=== PATIENT | male | born 1935 | race Caucasian/White ===

== ENCOUNTER → 2016-11-30 | Outpatient (CLI) | payer MEDICARE, OTHER ==
[2016-11-30 13:04] LABS: INR 1.65 (0.76-1.04)
[2016-11-30 13:09] LABS: ANION GAP 6 MEQ/L (5-15); BUN/CREATININE RATIO 23 RATIO (6-26); CALCIUM 9.1 MG/DL (8.4-10.2); CHLORIDE 103 MEQ/L (98-107); CO2 - CARBON DIOXIDE 28 MEQ/L (22-30); CREATININE 1.5 MG/DL (0.8-1.5); GLOMERULAR FILTRATION RATE 45; GLUCOSE 89 MG/DL (75-110); POTASSIUM 4.6 MEQ/L (3.6-5); SODIUM 137 MEQ/L (134-144)
== END ==
LOC: LABN 12:44
PROVIDERS: ATTEND Internal Medicine Cardiovascular Disease
DX: I25.10 Atherosclerotic heart disease of native coronary artery without angina pectoris (principal); I48.91 Unspecified atrial fibrillation
CPT/HCPCS: 80048; 85610

== ENCOUNTER 2017-01-09 15:19 | Emergency (ER) | payer MEDICARE, OTHER ==
[~2017-01-09] VITALS: Ht 172.7 cm; Wt 75.9 kg
[~2017-01-09 15:19] MED LIST: ASCO10007 PO; ASPI-557 PO; DOCU250C77 PO; FOLI1TAB15 PO; FURO40TA5 PO; GABA-338 PO; METO-275 PO; OXYC1TAB8 PO; PANT40TA27 PO; POT1TABL2 PO; SIMV20TA6 PO; VITA-321 PO; WARF2.5T73 PO; WARF5TAB6 PO
[2017-01-09 15:21] VITALS: TEMP 97.5; Ht 172.7 cm; Wt 75.9 kg
--- OUTSIDE RECORDS SUMMARY | 2017-01-09 15:23 | XMS REPORT | CCD ---
Author Author ADDIE MITCHELL Organization Unknown Address [address] [place], [place] [id number] Phone 0 Care Team Providers Care Curing Oven Attendant Name Role Phone LAVERNE JACKMAN Attending Physician [phone] GIBSON FOUNTAIN Physician [phone] Vital Signs Unknown or Not Available. Allergies Unknown or Not Available. Procedures Procedure Code Procedure Type Date Njx Dx/Ther Sbst Epidural/Subarach Lumbar/Sacral 48845 CPT 06/11/2015 Njx Dx/Ther Sbst Epidural/Subarach Lumbar/Sacral 98539 CPT 06/11/2015 History of Immunizations Unknown or Not Available. Problems Unknown or Not Available. Results Unknown or Not Available. Active Medications Unknown or Not Available. Medications Administered During Visit Unknown or Not Available. Encounters Encounter Diagnosis Diagnosis Code Start Date LUMBOSACRAL PLEX LESION 3531 06/11/2015 Social History Smoking Status Code Start Date End Date Unknown if ever smoked [id number] Patient Decision Aids Unknown or Not Available. Discharge Instructions You were admitted to [facility] on 06/11/2015 with a principal diagnosis of LUMBOSACRAL PLEX LESION. You had the following procedures done: INJECT SPINE LUMBAR/SACRAL INJECT SPINE LUMBAR/SACRAL You were discharged from [facility] on 06/11/2015. Should you have any questions prior to discharge, please contact a member of your healthcare team. If you have left the hospital and have any questions, please contact your primary care physician. Chief Complaint and Reason For Visit Chief Complaint Date of Onset EPIDURAL Function Status Unknown or Not Available. Plan of Care Unknown or Not Available. Referral/Transition of Care Unknown or Not Available.
--- OUTSIDE RECORDS SUMMARY | 2017-01-09 15:23 | XMS REPORT | CCD ---
Author Author ADDIE MITCHELL Organization Unknown Address [address] [place], [place] [id number] Phone 0 Care Team Providers Care Air Saw Operator Name Role Phone LAVERNE JACKMAN Attending Physician [phone] GIBSON FOUNTAIN Physician [phone] Vital Signs Unknown or Not Available. Allergies Unknown or Not Available. Procedures Procedure Code Procedure Type Date Njx Dx/Ther Sbst Intrlmnr Lmbr/Sac [place] 58719 CPT 09/22/2016 Njx Dx/Ther Sbst Intrlmnr Lmbr/Sac W/[place] 47211 CPT 09/22/2016 History of Immunizations Unknown or Not Available. Problems Unknown or Not Available. Results Unknown or Not Available. Active Medications Unknown or Not Available. Medications Administered During Visit Unknown or Not Available. Encounters Encounter Diagnosis Diagnosis Code Start Date Radiculopathy, lumbosacral region M5417 09/22/2016 Social History Smoking Status Code Start Date End Date Unknown if ever smoked [id number] Patient Decision Aids Unknown or Not Available. Discharge Instructions You were admitted to [facility] on 09/22/2016 08:04 with a principal diagnosis of Radiculopathy, lumbosacral region You had the following procedures done: Njx Dx/Ther Sbst Intrlmnr Lmbr/Sac W/O Img Gdn Njx Dx/Ther Sbst Intrlmnr Lmbr/Sac W/O Img Gdn You were discharged from [facility] on 09/22/2016 08:04 Should you have any questions prior to [...]
--- OUTSIDE RECORDS SUMMARY | 2017-01-09 15:23 | XMS REPORT | CCD ---
Author Author MANNY GARCIA Organization Unknown Address [address] [place], [place] [id number] Phone 0 Care Team Providers Care Arborist Representative Name Role Phone LAVERNE JACKMAN Attending Physician [phone] Vital Signs Unknown or Not Available. Allergies Unknown or Not Available. Procedures Unknown or Not Available. History of Immunizations Unknown or Not Available. Problems Unknown or Not Available. Results Unknown or Not Available. Medications Unknown or Not Available. Medications Administered Unknown or Not Available. Encounters Unknown or Not Available. Social History Smoking Status Code Start Date End Date Unknown if ever smoked [id number] Patient Decision Aids Unknown or Not Available. Discharge Instructions You were admitted to [facility] on 02/22/2014. You were discharged from [facility] on 02/22/2014. Should you have any questions prior to [...]
--- OUTSIDE RECORDS SUMMARY | 2017-01-09 15:23 | XMS REPORT ---
Author Author [place]/[facility], Via [facility] Unknown Address Unknown Phone Unavailable Allergies, Adverse Reactions, Alerts * No Latex Allergy. * No IV Contrast Allergy. * No Known Drug Allergies. * No Known Food Allergies. * No Known Allergies. Problems * Angina* Status:Active. Procedures No Procedures Documented. Medication It is the responsibility of the patient or patient renewals representative to confirm the list of medications with either the patient's personal care provider or the patient's follow-up care provider to ensure the patient has an appropriate list of medications to take at home. Discharge medications* isosorbide mononitrate 30 mg Tablet Extended Release 24 hr, Ordered By: Camilla Hernandez Directions: 1 tablet oral daily * simvastatin 20 mg Tablet, Ordered By: Camilla Hernandez Directions: 1 tablet oral daily every evening * meloxicam (Mobic) 7.5 mg Tablet, Ordered By: Camilla Hernandez Directions: 1 tablet oral daily * amLODIPine 10 mg Tablet, Ordered By: Camilla Hernandez Directions: 1 tablet oral daily * naproxen sodium (Aleve) 220 mg Tablet, Ordered By: Camilla Hernandez Directions: 1 tablet oral twice a day * enalapril maleate 20 mg Tablet, Ordered By: Camilla Hernandez Directions: 1 tablet oral twice a day * garlic 2,000 mg Capsule, Ordered By: Camilla Hernandez Directions: 1 capsule oral daily * foLIC Acid 0.8 mg Tablet, Ordered By: Camilla Hernandez Directions: 1 tablet oral daily * magnesium oxide (MagOx) 400 mg Tablet, Ordered By: Camilla Hernandez Directions: 1 tablet oral daily * potassium gluconate 595 mg (99 mg) Tablet, Ordered By: Camilla Hernandez Directions: 1 tablet oral daily * niacin 250 mg Tablet, Ordered By: Camilla Alexanderussen Directions: 1 tablet oral daily * ascorbic acid (Vitamin C) 500 mg Tablet Extended Release, Ordered By: Camilla Hernandez Directions: 1 tablet oral daily * flaxseed oil 1,000 mg Capsule, Ordered By: Camilla Hernandez Directions: 1 capsule oral daily * Fish Oil 1000mg 1 capsule by mouth daily. Last dose taken at home: 02/27/13 * omeprazole 20 mg Capsule, Delayed Release(E.C.), Ordered By: Camilla Hernandez Directions: 1 capsule oral daily * aspirin (Aspir-Low) 81 mg Tablet, Delayed Release (E.C.), Ordered By: Camilla Hernandez Directions: 1 tablet oral Daily at 8 AM _ Stopped medications* None Results LAB--CHEMISTRY from 02/27/2013 7:21 PMB-Type Natriuretic Pep. 40 pg/mL (0-99 pg/ mL) Magnesium 2.1 mg/dL (1.8-2.5 mg/dL) Troponin <0.06 ng/mL (-<0.06 ng/mL) Estimated Average Glucose 157.1 mg/dL Hemoglobin A1C 7.1 % H (4.1-5.6 %) TSH (with reflex Free T4) 1.55 uIU/mL (0.35-5.50 uIU/mL) LAB--CHEMISTRY from 02/28/2013 2:50 AMTroponin <0.06 ng/mL (-<0.06 ng/mL) LAB--CHEMISTRY from 02/28/2013 2:56 AMAnion Gap 8 (3-20 ) Albumin 3.4 g/dL L (3.5-4.8 g/dL) Alkaline Phosphatase 48 U/L (26-104 U/L) ALT (SGPT) 23 U/L (17-63 U/L) AST (SGOT) 23 U/L (15-41 U/L) Bilirubin Total 1.0 mg/dL (0.2-1.2 mg/dL) BUN 22 mg/dL H (4-20 mg/dL) Calcium 9.1 mg/dL (8.6-10.0 mg/dL) Chloride 109 mEq/L (99-109 mEq/L) CO2 25 mEq/L (22-32 mEq/L) Creatinine 1.20 mg/dL (0.64-1.27 mg/dL) eGFR 59 A (>60- ) Globulin 2.8 g/dL (1.9-4.3 g/dL) Glucose 107 mg/dL H (70-100 mg/dL) Potassium 3.8 mEq/L (3.6-5.1 mEq/L) Sodium 142 mEq/L (136-144 mEq/L) Protein 6.2 g/dL (6.1-7.9 g/dL) Cholesterol 139 mg/dL (0-200 mg/dL) Cardiac Risk 3.6 (0.0-5.7 ) HDL Cholesterol 39 mg/dL A (>40- mg/dL) LDL Cholesterol 74 mg/dL (0-100 mg/dL) Triglycerides 131 mg/dL (0-150 mg/dL) VLDL Cholesterol 26 mg/dL (0-30 mg/dL) LAB--CHEMISTRY from 02/28/2013 11:06 AMTroponin <0.06 ng/mL (-<0.06 ng/mL) LAB--CHEMISTRY from 03/01/2013 4:23 AMAnion Gap 8 (3-20 ) BUN 23 mg/dL H (4-20 mg/dL) Calcium 9.1 mg/dL (8.6-10.0 mg/dL) Chloride 109 mEq/L (99-109 mEq/L) CO2 23 mEq/L (22-32 mEq/L) Creatinine 1.20 mg/dL (0.64-1.27 mg/dL) eGFR 59 A (>60- ) Glucose 98 mg/dL (70-100 mg/dL) Potassium 4.1 mEq/L (3.6-5.1 mEq/L) Sodium 140 mEq/L (136-144 mEq/L) LAB--COAG STUDIES from 02/27/2013 7:21 PMINR 1.1 (0.9-1.2 ) PTT 90.2 sec H (25.0-35.0 sec) LAB--COAG STUDIES from 02/28/2013 2:50 AMPTT 68.1 sec H (25.0-35.0 sec) LAB--COAG STUDIES from 03/01/2013 4:22 AMPTT 35.0 sec (25.0-35.0 sec) LAB--HEMATOLOGY from 02/28/2013 2:50 AMAbsolute Basophils 0.04 THOUS (0.00-0.20 THOUS) Absolute Eosinophils 0.24 THOUS (0.00-0.50 THOUS) Absolute Lymphocytes 3.02 THOUS (0.80-3.30 THOUS) Absolute Monocytes 0.76 THOUS (0.30-1.00 THOUS) Absolute Neutrophils 2.63 THOUS (1.90-7.00 THOUS) HCT 44.0 % (42.0-52.0 %) HGB 14.7 g/dl (14.0-18.0 g/dl) MCH 30.4 pg (27.0-32.0 pg) MCHC 33.4 g/dL (32.0-36.0 g/dL) MCV 91.1 fL (82.0-99.0 fL) MPV 10.9 fL (9.4-12.3 fL) Platelet Count 159 K/uL (150-400 K/uL) RBC 4.83 M/uL (4.60-6.20 M/uL) RDW 12.5 % (11.5-14.5 %) WBC 6.7 K/uL (4.8-10.8 K/uL) Basophils 1 % (0-2 %) Eosinophils 4 % (0-4 %) Immature Granulocytes 0.1 % (0.0-1.0 %) Lymphocytes 45 % (20-46 %) Monocytes 11 % (4-11 %) Nucleated RBC Automated 0.0 /100 WBC (0 /100 WBC) Neutrophils 39 % L (51-75 %) LAB--HEMATOLOGY from 03/01/2013 4:22 AMHCT 47.0 % (42.0-52.0 %) HGB 15.3 g/dl (14.0-18.0 g/dl) MCH 30.6 pg (27.0-32.0 pg) MCHC 32.6 g/dL (32.0-36.0 g/dL) MCV 94.0 fL (82.0-99.0 fL) MPV 11.2 fL (9.4-12.3 fL) Platelet Count 165 K/uL (150-400 K/uL) RBC 5.00 M/uL (4.60-6.20 M/uL) RDW 12.8 % (11.5-14.5 %) WBC 6.1 K/uL (4.8-10.8 K/uL) LAB--URINE TESTS from 02/27/2013 9:04 PMAppearance Clear Bilirubin Negative (Negative ) Blood Negative (Negative ) Color Lt Yellow Glucose Negative (Negative ) Ketones, Urine Negative (Negative ) Leukocytes Esterase Negative (Negative ) Nitrites Negative (Negative ) pH, Urine 7.0 (5.0-8.0 ) Protein Negative (Negative ) Specific [place] 1.011 (1.003-1.030 ) Collection Type: Clean Catch Urobilinogen Negative mg/dL (-<1.0 mg/dL)
--- OUTSIDE RECORDS SUMMARY | 2017-01-09 15:23 | XMS REPORT | CCD ---
Author Author MANNY GARCIA Organization Unknown Address [address] [place], [place] [id number] Phone 0 Care Team Providers Care Collar Separator Name Role Phone GIBSON FOUNTAIN Attending Physician [phone] LAVERNE JACKMAN Physician [phone] Vital Signs Unknown. Allergies Unknown. Procedures Unknown. History of Immunizations Unknown. Problems Unknown. Results Unknown. Medications Unknown. Medications Administered Unknown. Encounters Unknown. Social History Smoking Status Code Start Date End Date Unknown if ever smoked [id number] Patient Decision Aids Unknown. Discharge Instructions You were admitted to [facility] on 02/09/2014. You were discharged from [facility] on 02/09/2014. Should you have any questions prior to discharge, please contact a member of your healthcare team. If you have left the hospital and have any questions, please contact your primary care physician. Chief Complaint and Reason For Visit Chief Complaint Date of Onset EPIDURAL Function Status Unknown. Plan of Care Unknown. Referral/Transition of Care Unknown.
--- OUTSIDE RECORDS SUMMARY | 2017-01-09 15:23 | XMS REPORT | CCD ---
Author MANNY Erazo Organization Unknown Address [address] [place], [place] [id number] Phone 0 Care Team Providers Care Au Pair Name Role Phone LAVERNE JACKMAN Attending Physician [phone] GIBSON FOUNTAIN Physician [phone] Vital Signs Unknown or Not Available. Allergies Unknown or Not Available. Procedures Unknown or Not Available. History of Immunizations Unknown or Not Available. Problems Unknown or Not Available. Results Unknown or Not Available. Active Medications Unknown or Not Available. Medications Administered During Visit Unknown or Not Available. Encounters Encounter Diagnosis Diagnosis Code Start Date MONONEURITIS NOS 3559 08/17/2014 Social History Smoking Status Code Start Date End Date Unknown if ever smoked [id number] Patient Decision Aids Unknown or Not Available. Discharge Instructions You were admitted to [facility] on 08/17/2014 with a principal diagnosis of MONONEURITIS NOS. You had the following procedures done: INJECT SPINE LUMBAR/SACRAL INJECT SPINE LUMBAR/SACRAL You were discharged from [facility] on 08/17/2014. Should you have any questions prior to [...]
--- OUTSIDE RECORDS SUMMARY | 2017-01-09 15:23 | XMS REPORT | CCD ---
Author MANNY Erazo Organization Unknown Address [address] [place], [place] [address] Phone 0 Care Team Providers Care Clinic Lead Name Role Phone LAVERNE JACKMAN Attending Physician [phone] GIBSON FOUNTAIN Physician [phone] Vital Signs Unknown or Not Available. Allergies Unknown or Not Available. Procedures Procedure Code Procedure Type Date INJECT SPINE LUMBAR/SACRAL 19165 CPT 02/05/2015 INJECT SPINE LUMBAR/SACRAL 75882 CPT 02/05/2015 History of Immunizations Unknown or Not Available. Problems Unknown or Not Available. Results Unknown or Not Available. Active Medications Unknown or Not Available. Medications Administered During Visit Unknown or Not Available. Encounters Encounter Diagnosis Diagnosis Code Start Date MONONEURITIS NOS 3559 02/05/2015 Social History Smoking Status Code Start Date End Date Unknown if ever smoked [id number] Patient Decision Aids Unknown or Not Available. Discharge Instructions You were admitted to [facility] on 02/05/2015 with a principal diagnosis of MONONEURITIS NOS. You had the following procedures done: INJECT SPINE LUMBAR/SACRAL INJECT SPINE LUMBAR/SACRAL You were discharged from [facility] on 02/05/2015. Should you have any questions prior to [...]
--- OUTSIDE RECORDS SUMMARY | 2017-01-09 15:26 | XMS REPORT ---
Author Author [place], Via [facility] Unknown Address Unknown Phone Unavailable Allergies, Adverse Reactions, Alerts * No Latex Allergy. * No IV Contrast Allergy. * No Known Drug Allergies. * No Known Food Allergies. * No Known Allergies. Problems * Angina* Status:Active. Procedures No Procedures Documented. Medication It is the responsibility of the patient or patient life assurance representative to confirm the list of medications [...] (5.0-8.0 ) Protein Negative (Negative ) Specific [place] 1.011 (1.003-1.030 ) Collection Type: Clean Catch Urobilinogen Negative mg/dL (-<1.0 mg/dL)
[2017-01-09] MEDS ORDERED: METO25TA6 PO (15:46)
[2017-01-09] MEDS ORDERED: POTA20TA87 PO (15:47)
[2017-01-09] MEDS ORDERED: ACET-2890 PO (15:49)
--- NOTE | 2017-01-09 15:50 | ERPDOC ---
Departure Disposition Decision Date: Jan 09, 2017 Disposition Decision Time: 15:50 (HAIR FRASER APRN) Disposition: 01 DISCHARGED HOME, SELF-CARE Impression Impression (ULYSSESGINAHAIR Cerna APRN) Impression: Primary Impression: Tendonitis of ankle, right Severity: Moderate (HAIR FRASER APRN) Condition: Stable Seen By: Mid-level only (HAIR FRASER APRN) Referrals: GIBSON FOUNTAIN (Family) Patient Instructions: Ankle Bursitis (ED) Problems/Meds/Labs Reviewed?: Yes Medications reviewed and manag: Yes (HAIR FRASER APRN) Additional Instructions: I do want you to take the Prednisone as prescribed, this is to help with the inflammation. Ice and elevate the ankle. You may use the [place] as needed for pain as well. Follow up with the cardiac rehab nurses on Wednesday or your primary care provider if this is still causing you pain. Return to ER with any increased swelling or redness or new issues/concerns. Follow up care ordered?: Yes Mental Status: Alert, Oriented (HAIR FRASER APRN) Scripts Hydrocodone/Acetaminophen ([place] 5-325 Tablet) 5-325 Tablet 1 TAB PO Q6H Y for PAIN, #15 TAB 0 Refills Prov: HAIR FRASER APRN 01/09/17 Prednisone (Prednisone) 20 Mg Tablet 20 MG PO BIDWM, #10 TAB 0 Refills Take 1 tablet, by mouth, 2 times a day with meals. Prov: HAIR FRASER APRN 01/09/17 HPI General Chief Complaint: Lower Extremity Pain Stated Complaint: RT FOOT PAIN Time Seen by Provider: 15:22 Source: patient Exam Limitations: no limitations (HAIR FRASER APRN) Time Seen by Provider: 15:22 (NIRAV CALVILLO MD) HPI Foot/Ankle Initial Comments He had started cardiac rehab on Wednesday of last week, 4 days ago. The next day he started having trouble with pain in the right achilles region. He returned to cardiac rehab Wednesday and last night and today the pain is much worse. He has taken an Oxycodone for this but it did not help much. Pain is worse when he is walking or with dorsiflexion of the right foot. He has never had pain like this before. Is walking on the treadmill and biking for his rehab. Is wearing tennis shoes. 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 (NOLD,HAIR N TAPE RECORDER MECHANIC) Past Medical History Metabolic: hypercholesterolemia, hypertension Cardiac: CAD (NOLD,HAIR N TAPE RECORDER MECHANIC) Surgical History Cardiac: cardiac bypass (NOLD,HAIR N TAPE RECORDER MECHANIC) Family History Family History: Negative (NOLD,HAIR N TAPE RECORDER MECHANIC) Social History Smoking Status: Never smoker Substance Use Type: does not use Alcohol Intake: none (NOLD,HAIR N TAPE RECORDER MECHANIC) Review of Systems Constitutional Constitutional: DENIES: chills, dizziness, fatigue, fever, weakness (NOLD, HAIR N TAPE RECORDER MECHANIC) Cardiovascular Cardiac: DENIES: chest pain, orthopnea Rhythm/Rate: DENIES: irregular beat, palpitations (NOLD,HAIR N TAPE RECORDER MECHANIC) Pulmonary Respiratory: DENIES: cough, dyspnea, sputum, tachypnea (NOLD,HAIR N TAPE RECORDER MECHANIC) GI Upper Abdomen: DENIES: nausea, pain, vomiting Lower Abdomen: DENIES: constipation, diarrhea, pain (NOLD,HAIR N TAPE RECORDER MECHANIC) Musculoskeletal General: joint pain (right ankle), joint swelling (right ankle), pain (Right ankle), tenderness (right ankle) (NOLD,HAIR N TAPE RECORDER MECHANIC) Integumentary Skin: DENIES: color change, rash (NOLD,HAIR N TAPE RECORDER MECHANIC) Neurological General: DENIES: numbness, tingling, weakness (NOLD,HAIR N TAPE RECORDER MECHANIC) Exam General General Nourishment: well nourished, well developed, appears stated age, no acute distress, adult General Body Habitus: well groomed Vital Signs: RN Vital Signs have been reviewed: Yes, Temperature: 97.5, Source : Oral, Heart Rate: 70, Respiratory Rate: 18, BP: 170/81, Pulse Oximetry: 96 Height (Feet): 5 Height (Inches): 8.00 (HAIR FRASER APRN) Fastrak Foot/Ankle Foot/Ankle : Leg: Right Leg: NOT FOUND: atrophy, contusion, deformity, discoloration, edema, numbness, swelling, tender, weakness Ankle: achilles tendon insertion (tenderness upon palpation), other (Very mild erythema noted at the distal aspect of the achilles at the site of insertion), swelling (rosi-achilles ), tender lat. malleolus (posterior aspect) , tender med. malleolus (posterior aspect), NOT FOUND: anterior drawer sign, decreased ROM, deformity, ecchymosis, foot drop, numbness, tender lat. foot, tender mid foot, weakness Foot: NOT FOUND: deformity, discoloration, numbness, swelling, tender 1st MTP joint, tender plantar fascia Toes: cap refill <2 sec ea toe, NOT FOUND: decreased ROM, deformity, ecchymosis, erythema, nail avulsion, subungual hematoma Dorsalis Pedis Pulse: 2+ (HAIR FRASER APRN) Neurologic RN Documented GCS Eye Opening: Verbal: Motor: Total: (HAIR FRASER TAPE RECORDER MECHANIC) Differential Diagnoses Considering: Achilles Tendon Tear, Plantar Fasciitis, Sprain, Strain, Other ( achilles tendonitis, calcaneal bursitis) (HAIR FRASER TAPE RECORDER MECHANIC) Progress Results/Orders Orders Procedure Category Date Status Time Premade Splint EDM 01/09/17 Transmitted 15:45 (NIRAV CALVILLO MD) Orders Procedure Category Date Status Time Premade Splint EDM 01/09/17 Transmitted 15:45 (HAIR FRASER APRN) Progress Progress I do think that this is likely an achilles tendonitis or calcaneal bursitis. Will have him ice and elevate the ankle. He takes Warfarin so will hold off on NSAIDs and will have him try a short burst of Prednisone today. I am going to also have him wear a CAM walker to rest the achilles but have him still be able to ambulate. Check in with the rehab nurses or his PCP on Wednesday regarding his pain if this is not improving. Return to Er with any increased redness/swelling/ pain as this may be an infection, no indication of infection at this time however. (HAIR FRASER APRN) HAIR FRASER APRN Jan 09, 2017 15:50 NIRAV CALVILLO MD Jan 10, 2017 06:37
[2017-01-09] MEDS ORDERED: HYDR-4246 PO (15:53)
[2017-01-09] MEDS ORDERED: PRED20TA PO (15:53)
[2017-01-09 16:03] VITALS: BP 146/76; PULSE 74; RESP 19; O2SAT 96
== END 2017-01-09 16:03 | disposition home or self-care (01) ==
LOC: ED 15:19
DX: M76.61 Achilles tendinitis, right leg (principal)
CPT/HCPCS: 99283; L4386

== ENCOUNTER 2017-01-14 02:02 | Emergency (ER) | payer MEDICARE, OTHER ==
[~2017-01-14] VITALS: Ht 172.7 cm; Wt 74.9 kg
[2017-01-14 02:02] VITALS: Ht 172.7 cm; Wt 74.9 kg
[~2017-01-14 02:02] MED LIST changes: +ACET-2890 PO; +HYDR-4246 PO; -METO-275 PO; +METO25TA6 PO; -POT1TABL2 PO; +POTA20TA87 PO; +PRED20TA PO
--- OUTSIDE RECORDS SUMMARY | 2017-01-14 02:06 | XMS REPORT ---
Author Author [place], [facility] Unknown Address Unknown Phone Unavailable Allergies, Adverse Reactions, Alerts * No Latex Allergy. * No IV Contrast Allergy. * No Known Drug Allergies. * No Known Food Allergies. * No Known Allergies. Problems * Angina* Status:Active. Procedures No Procedures Documented. Medication It is the responsibility of the patient or patient sales representative livestock to confirm the list of medications with [...] (5.0-8.0 ) Protein Negative (Negative ) Specific [place] 1.011 (1.003-1.030 ) Collection Type: Clean Catch Urobilinogen Negative mg/dL (-<1.0 mg/dL)
--- OUTSIDE RECORDS SUMMARY | 2017-01-14 02:06 | XMS REPORT | Continuity of Care Document ---
Author Author [facility] Organization [facility] Address Unknown Phone Unavailable Support Name Relationship Address Phone KADIEEvelinaGIBSON Caregiver [address] [place] [address] Unavailable NIRAV CALVILLO MD Caregiver [address] [place] [address] [place] [phone] Unavailable DU GRAJEDA Next Of Kin [address], [place] [id number] Insurance Providers Guarantor Lori Odell Address [address] [place] [address] Email DENIED 17 Payer [place] Policy Number [id number] Subscriber's Name LoraineLori Klaudia Relationship 18 Self Group Number [id number] Payer Medicare Policy Number [id number] Subscriber's Name LoraineLori Relationship 18 Self Advance Directives Directive Response Recorded Date/Time Advanced Directives Type Living Will DPOA for Healthcare 01/09/17 3:21pm Chief Complaint and Reason for Visit Chief Complaint Lower Extremity Pain Reason for Visit [id number] Problems Active Problems Medical Problem Onset Date Status Tendonitis of ankle, right Unknown Acute Medications Current Home Medications Medication Dose Units Route Directions Days Qty Instructions Start Date Acetaminophen 650 Mg Tablet.er 1,300 Mg Oral Every 8 Hours as needed for Pain 01/09/17 Ascorbic Acid (Vitamin C) 1,000 Mg Tablet 1,000 Mg Oral Daily Aspirin (Aspir 81) 81 Mg Tablet. 81 Mg Oral Daily 01/04/17 Docusate Sodium 250 Mg Capsule 250 Mg Oral Twice A Day 01/04/17 Folic Acid 1 Mg Tablet 1 Mg Oral Daily 12/25/16 Furosemide 40 Mg Tablet 20 Mg Oral Daily 12/25/16 Gabapentin 300 Mg Capsule 300 Mg Oral Four Times Daily 12/25/16 Hydrocodone/Acetaminophen ([place] 5-325 Tablet) 5-325 Tablet 1 Tab Oral Every 6 Hours as needed for Pain 15 Tablet 01/09/17 Metoprolol Tartrate 25 Mg Tablet 25 Mg Oral Daily 01/09/17 Oxycodone Hcl/Acetaminophen (Percocet 5-325 Mg Tablet) 5-325 Tablet 1-2 Tab Oral Every 4-6 Hours as needed for Pain 01/04/17 Pantoprazole Sodium 40 Mg Tablet.dr 40 Mg Oral Bedtime 12/25/16 Potassium Chloride 20 Meq Tab.er.prt 20 Meq Oral Daily 01/09/17 Prednisone 20 Mg Tablet 20 Mg Oral Twice Daily With Meals 10 Tablet Take 1 tablet, by mouth, 2 times a day with meals. 01/09/17 Simvastatin 20 Mg Tablet 20 Mg Oral Daily 12/25/16 Vitamin E Acetate (Vitamin E) 400 Unit Capsule 400 Unit Oral Daily 12/25/16 Warfarin Sodium 2.5 Mg Tablet 2.5 Mg Oral Every Wednesday At 8:00AM 12/25/16 Warfarin Sodium 5 Mg Tablet 5 Mg Oral Miketuthlaura@0800 12/25/16 Social History Social History Problem Response Recorded Date/Time Onset Date Status Chewing Tobacco Status No 01/09/2017 3:29pm Not Applicable Not Applicable Hx Alcohol Use No 01/09/2017 3:29pm Not Applicable Not Applicable Query Response Start Date Stop Date Smoking Status Never smoker Hospital Discharge Instructions No hospital discharge instructions. Plan of Care Discharge Date 01/09/17 4:03pm Disposition 01 DISCHARGED HOME, SELF-CARE Condition at Discharge Stable Instructions/Education Provided Ankle Bursitis (ED) Prescriptions See Medication Section Referrals [facility] Address: [address] [place] [phone] Additional Instructions/Education I do want you to take the Prednisone as prescribed, this is to help with the inflammation. Ice and elevate the ankle. You may use the [place] as needed for pain as well. Follow up with the cardiac rehab nurses on Wednesday or your primary care provider if this is still causing you pain. Return to ER with any increased swelling or redness or new issues/concerns. Care Plan and Goals Physician Care Plan Problem:Right ankle pain Goal: Follow up with primary care provider Instructions: Take medications and follow care plan as discussed/written Functional Status No functional status results. Allergies, Adverse Reactions, Alerts No known allergies. Immunizations Query Response on File Recorded Date/Time Influenza Vaccine Hx 2016 01/09/17 3:29pm Tdap Vaccine Hx UNKNONWN 01/09/17 3:26pm Vital Signs Acute Vital Signs Vital Response Date/Time Temperature (Fahrenheit) 97.5 deg F (96.8 - 99.1) 01/09/2017 3:21pm Temperature (Calculated Celsius) 36.36643 degrees C (36.0 - 37.3) 01/09/2017 3:21pm Pulse Rate (adult) 74 bpm (60 - 100) 01/09/2017 4:03pm Respiratory Rate 19 breaths/min (10 - 20) 01/09/2017 4:03pm O2 Sat by Pulse Oximetry 96 % (90 - 100) 01/09/2017 4:03pm Blood Pressure 146/76 mm Hg 01/09/2017 4:03pm Height (Feet) 5 feet 01/09/2017 3:21pm Height (Inches) 8.00 inches 01/09/2017 3:21pm Weight (Kilograms) 75.900 kg 01/09/2017 3:21pm Body Mass Index (BMI) 25.0 01/09/2017 3:21pm Results Laboratory Results Test Name Result Units Flags Reference Collection Date/Time Result Date/ Time Comments Prothromb Time International Ratio 1.65 H 0.76-1.04 11/30/2016 12:05pm 11/30/2016 1:04pm THERAPUTIC RANGE=2.00-3.00 FOR ANTI-THROMBOSIS THERAPUTIC RANGE=2.50-3.50 FOR IMPLANTED VALVE Icterus Index < 2 0-7 11/30/2016 12:05pm 11/30/2016 1:09pm Chemistry Specimen Hemolysis < 15 0-25 11/30/2016 12:05pm 11/30/2016 1:09pm 0-25: Specimen Exhibited No Hemolysis. Turbidity < 20 0-20 11/30/2016 12:05pm 11/30/2016 1:09pm Sodium Level 137 MEQ/L 134-144 11/30/2016 12:05pm 11/30/2016 1:09pm Potassium Level 4.6 MEQ/L 3.6-5 11/30/2016 12:05pm 11/30/2016 1:09pm Chloride Level 103 MEQ/L 98-107 11/30/2016 12:05pm 11/30/2016 1:09pm Carbon Dioxide Level 28 MEQ/L 22-30 11/30/2016 12:05pm 11/30/2016 1: 09pm Anion Gap 6 MEQ/L 5-15 11/30/2016 12:05pm 11/30/2016 1:09pm Blood Urea Nitrogen 34.0 MG/DL H 9-20 11/30/2016 12:05pm 11/30/2016 1: 09pm Creatinine 1.5 MG/DL 0.8-1.5 11/30/2016 12:05pm 11/30/2016 1:09pm BUN/Creatinine Ratio 23 RATIO 6-26 11/30/2016 12:05pm 11/30/2016 1: 09pm Glomerular Filtration Rate Calc 45 11/30/2016 12:05pm 11/30/2016 1: 09pm Glucose Level 89 MG/DL 75-110 11/30/2016 12:05pm 11/30/2016 1:09pm Calculated Osmolality 271 MOSM/KG 261-280 11/30/2016 12:05pm 2016 1:09pm Calcium Level 9.1 MG/DL 8.4-10.2 11/30/2016 12:05pm 11/30/2016 1:09pm Procedures Procedure Status Date Provider(s) Metabolic panel total ca Completed 11/30/16 Prothrombin time Completed 11/30/16 Encounters Encounter Location Arrival/Admit Date Discharge/Depart Date Attending Provider Registered Emergency Room [facility] 01/09/17 3:19pm NIRAV CALVILLO MD Registered [facility] 01/08/17 2:00pm GREG LARKIN MD Registered Clinic [facility] 11/30/16 12:44pm PARI DORAN Recent Diagnosis
--- NOTE | 2017-01-14 02:10 | NUR ---
PROVIDER DR BRUCE IN ROOM TO SEE PT
[2017-01-14] MEDS ORDERED: LABETALOL IV ONE ×2 (02:15→03:00)
--- NOTE | 2017-01-14 02:22 | ERPDOC ---
Departure Disposition Decision Date: January 14, 2017 Disposition Decision Time: 04:02 Disposition: 01 DISCHARGED HOME, SELF-CARE Impression Impression Impression: Primary Impression: Hypertensive urgency Additional Impression: Headache Headache type: other vascular headache Qualified Codes: G44.1 - Vascular headache, not elsewhere classified Severity: Severe Condition: Improved Seen By: Physician only Referrals: [facility] (Family) Patient Instructions: Hypertension (ED) Problems/Meds/Labs Reviewed?: Yes Medications reviewed and manag: Yes Additional Instructions: Take metoprolol 25 mg, one full tablet twice daily Follow up with Dr. Gayle later this week or next week. Call for appt. Follow up care ordered?: Yes Mental Status: Alert, Oriented HPI - General Medical General Chief Complaint: Acute Medical Problem Stated Complaint: HIGH B/P Time Seen by Provider: 02:03 Source: patient Exam Limitations: no limitations HPI - General Medical Initial Comments Patient awoke approximately one hour ago with severe posterior headache, when he took his blood pressure at home he found it to be significantly elevated. Patient has had headaches with elevated blood pressure in the past. One and a half months ago the patient was seen for a CABG with ablation. At that time the patient was switched to metoprolol 25 mg one half tablet twice daily. 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 Past Medical History Metabolic: hypercholesterolemia, hypertension Cardiac: CAD Surgical History Cardiac: cardiac bypass Social History Smoking Status: Never smoker Does patient use chewing tobac: No Second Hand Exposure: No Substance Use Type: does not use Alcohol Intake: none Record Review Pertinent history updated: Yes Review of Systems Constitutional Constitutional: DENIES: appetite decrease, appetite increase, chills, dizziness , fever, weakness ENMT Ears: DENIES: pain Hearing: DENIES: hearing loss, tinnitus Balance: DENIES: vertigo Mouth/Throat: DENIES: change in swallowing, change in voice, hoarsness, painful swallowing, sore throat Cardiovascular Cardiac: DENIES: chest pain, dyspnea on exertion Rhythm/Rate: DENIES: irregular beat, palpitations, tachycardia Vascular: DENIES: pedal edema Pulmonary Respiratory: DENIES: cough, dyspnea, pleuritic chest pain GI Upper Abdomen: DENIES: dysphagia, heartburn/indigestion, nausea, pain, vomiting Lower Abdomen: DENIES: blood in stool, constipation, diarrhea, pain General: DENIES: burning, dysuria, frequency, pain, urgency Musculoskeletal General: DENIES: cramps, joint pain, joint swelling, pain, weakness Integumentary Skin: DENIES: rash, sores Neurological General: headache, DENIES: numbness, tingling, vertigo, weakness Psychiatric Psychiatric: DENIES: anxiety, depression, nervousness Physical Exam General General Nourishment: well nourished, well developed, appears stated age, no acute distress General Body Habitus: well groomed Vitals and Pain First Documented Vital Signs Date Time Temp Pulse Resp B/P Pulse Ox O2 Delivery O2 Flow Rate FiO2 01/14/17 02:02 66 18 224/118 98 Room Air 01/14/17 02:02 98.8 Weight: Kilograms: 74.900 Height (feet): 5 Height (inches): 8.00 Triage Pain Scale: RN VS reviewed by Provider: Yes Normal Exams: Head: Normocephalic w/o trauma Eyes: Pupils are PERRLA w/ EOMI, No scleral icterus, irritation, or foreign bodies noted ENMT: No facial trauma, nasal exudates, pharyngeal erythema, or exudates are noted Neck: Full range of motion, without adenopathy, JVD, bruits or thyromegaly Chest/Resp: Clear all dowling, with good airflow, and symmetry bilaterally CV: Regular rate and rhythm, without murmur or gallop, Pulses 2+ all extremities, capillary refill, <2 seconds all ext., no pedal edema noted Abdomen: Bowel sounds positive, soft, non-tender, non-distended, no hepatosplenomegaly, masses or bruits noted Lymphatic: No lymphadenopathy, or lymphedema noted Musculoskeletal: No tenderness, or deformity noted, good range of motion, all extremities Integumentary: No rashes, hives, or bruising noted, hair and nails, without abnormality Neurologic: Patient is alert, and oriented, cranial nerves, motor/sensory/ cerebellar, exams w/o gross deficits, to observation Psychiatric: Patient exhibits, appropriate attention, emotion and affect Progress Results/Orders Orders Procedure Category Date Status Time Iv Lock (Ed Only) EDM 01/14/17 Transmitted 02:14 Bmp - Basic Metabolic LAB 01/14/17 Complete Panel Labetalol (Trandate) PHA 01/14/17 Complete 02:15 Labetalol (Trandate) PHA 01/14/17 Complete 03:00 Metoprolol Xl (Toprol PHA 01/14/17 Complete Xl) 03:00 Ct Head W/O Contrast CT 01/14/17 Logged Lab Results Laboratory Tests Test 01/14/17 02:27 Turbidity < 20 Sodium Level 145MEQ/L Potassium Level 4.6MEQ/L Chloride Level 108MEQ/L Carbon Dioxide Level 24MEQ/L Anion Gap 13MEQ/L Blood Urea Nitrogen 34.0MG/DL Creatinine 1.3MG/DL Glomerular Filtration Rate Calc 53 BUN/Creatinine Ratio 26RATIO Glucose Level 116MG/DL Calculated Osmolality 288MOSM/KG Calcium Level 10.4MG/DL Icterus Index < 2 Chemistry Specimen Hemolysis 38 Medications Current ED Medications Labetalol HCl (Trandate) 20 mg O ONCE IV Last administered on 01/14/17 02:35; Start 01/14/17 at 02:15; Stop 01/14/17 at 02:16; Status DC Labetalol HCl (Trandate) 20 mg O ONCE IV Last administered on 01/14/17 03:03; Start 01/14/17 at 03:00; Stop 01/14/17 at 03:01; Status DC Metoprolol Succinate (Toprol Xl) 25 mg O ONCE PO Last administered on 03:16; Start 01/14/17 at 03:00; Stop 01/14/17 at 03:01; Status DC Progress Progress Patient's initial blood pressure in the ER was elevated at 224/118. Patient is given labetalol 20 mg IV - improved, the blood pressure still 181/95 , with slight left occipital headache. 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 MARIVEL BRUCE MD January 14, 2017 02:22
--- OUTSIDE RECORDS SUMMARY | 2017-01-14 02:29 | XMS REPORT ---
Author Author [facility] Unknown Address Unknown Phone Unavailable Allergies, Adverse Reactions, Alerts * No Latex Allergy. * No IV Contrast Allergy. * No Known Drug Allergies. * No Known Food Allergies. * No Known Allergies. Problems * Angina* Status:Active. Procedures No Procedures Documented. Medication It is the responsibility of the patient or patient medical service representative to confirm the list of medications [...] (5.0-8.0 ) Protein Negative (Negative ) Specific Brohard 1.011 (1.003-1.030 ) Collection Type: Clean Catch Urobilinogen Negative mg/dL (-<1.0 mg/dL)
[2017-01-14 02:45] LABS: ANION GAP 13 MEQ/L (5-15); BUN/CREATININE RATIO 26 RATIO (6-26); CALCIUM 10.4 MG/DL (8.4-10.2); CHLORIDE 108 MEQ/L (98-107); CO2 - CARBON DIOXIDE 24 MEQ/L (22-30); CREATININE 1.3 MG/DL (0.8-1.5); GLOMERULAR FILTRATION RATE 53; GLUCOSE 116 MG/DL (75-110); POTASSIUM 4.6 MEQ/L (3.6-5); SODIUM 145 MEQ/L (134-144)
--- NOTE | 2017-01-14 02:48 | NUR ---
RETURN FROM CT
[2017-01-14] MEDS ORDERED: METOPROLOL XL 25 MG TABLET PO ONE (03:00)
--- NOTE | 2017-01-14 03:35 | NUR ---
DEPART PT AND ARE GIVEN DISMSISAL INSTRUCTIOSN WITH VERBAL UNDERSTANDING. PT LEAVES AMBULATORY WITH TO ED EXIT
[2017-01-14] MEDS ORDERED: HYDROMORPHONE 2mg/ml INJECTION IV ONE (04:00)
[2017-01-14 04:27] VITALS: BP 185/97; PULSE 62; RESP 18; TEMP 98.8; O2SAT 96
--- NOTE | 2017-01-14 07:52 | DI ---
Indication: ITS.REASON: left occipital headache with hypertension PROCEDURE: CT HEAD W/O CONTRAST: Encounter: Initial Comparison: None Technique: Axial CT images through the head were performed without contrast. Iterative Reconstruction dose reducing technique was utilized. FINDINGS: Mild to moderate atrophy. The ventricles are of normal size, shape, and contour for the patient's age. There are scattered areas of low attenuation in the white matter which most likely represent changes from chronic microvascular ischemia. The brainstem, cerebellum, and cerebral hemispheres otherwise have a normal morphology and CT attenuation. There is no evidence of midline displacement. No hemorrhage, signs of acute territorial stroke, mass effect, mass lesions, or edema is evident. The visualized portions of the skull base, midface, and calvarium demonstrate no abnormality. The paranasal sinuses are well aerated and free of significant disease. The tympanic and mastoid cavities appear normal. IMPRESSION: No acute intracranial abnormality or hemorrhage. There is a preliminary report by [employer]. .
== END 2017-01-14 03:35 | disposition home or self-care (01) ==
LOC: ED 02:02
DX: I16.0 Hypertensive urgency (principal); G44.1 Vascular headache, not elsewhere classified
CPT/HCPCS: 70450; 80048; 96374; 96375; 99284; A9270; J1170